=== PATIENT | female | born 1960 | race Caucasian/White ===

== ENCOUNTER 2016-07-03 10:05 | Outpatient (CLI) | payer MEDICARE ==
[2016-07-03 10:27] LABS: #Basophils 0.1 thou/uL (0.0-0.2); #Lymphocytes 2.1 thou/uL (1.20-3.40); #Monocytes 0.3 thou/uL (0.11-0.59); #Neutrophils 2.9 thou/uL (1.40-6.50); %Eosinophils 0.8 % (0.0-10.0); %Lymphocytes 38.7 % (21.0-51.0); %Monocytes 6.1 % (0.0-10.0); %Neutrophils 53.3 % (42.0-75.0); Hemoglobin 14.7 g/dL (12.0-16.0); Mean Corpuscular HGB CONC 34.1 g/dL (32.0-36.0); Mean Corpuscular Hemoglobin 33.3 pg (27.0-31.0); Mean Corpuscular Volume 97.5 fl (81.0-99.0); Platelet Count 261 thou/uL (130-400); RBC Distribution Width 13.1 % (11.5-14.5); Red Blood Cell (RBC) Count 4.43 mill/uL (4.20-5.40); White Blood Cell (WBC) Count 5.3 thou/uL (4.8-10.8)
[2016-07-03 11:22] LABS: ALT (SGPT) 24 U/L (8-55); AST (SGOT) 21 U/L (5-34); Albumin 4.3 g/dL (3.5-5.0); Alkaline Phosphatase 81 U/L (40-150); Anion Gap 14 mmol/L (10-20); BUN (Urea Nitrogen) 17 mg/dL (9.8-20.1); Bilirubin, Total 0.4 mg/dL (0.2-1.2); Calc. Creatinine Clearance 0 mL/min (70-130); Calcium 9.7 mg/dL (7.8-10.44); Carbon Dioxide 27 mmol/L (22-29); Cardiac Risk 6.2 (Less than 4.5); Chloride 105 mmol/L (98-107); Cholesterol 303 mg/dl (< 200 Desired); Estimated GFR-MDRD 72; Glucose 115 mg/dL (70-105); HDL Cholesterol 49 mg/dL (>60 Neg Risk); LDL Cholesterol, Calculated 208 mg/dL; Magnesium 2.3 mg/dL (1.6-2.6); Potassium 4.4 mmol/L (3.5-5.1); Protein, Total 7.3 g/dL (6.0-8.3); Sodium 142 mmol/L (136-145); Triglycerides 228 mg/dL (Less than 150)
[2016-07-04 17:01] LABS: Creatinine, Urine 31.92 mg/dL (47-110); Microalbumin Urine Less than 1.0 mg/dL (0.5-50.0); Microalbumin/Creat Ratio 31.3 mg/g (Less than 30)
== END 2016-07-03 10:06 | disposition home or self-care (01) ==
LOC: BURLAB 10:05
PROVIDERS: ATTEND Physician Assistant Medical
DX: E11.9 Type 2 diabetes mellitus without complications (principal); E78.2 Mixed hyperlipidemia; I10 Essential (primary) hypertension; I48.92 Unspecified atrial flutter
CPT/HCPCS: 36415; 80053; 80061; 82043; 83036; 83735; 84443; 85025

== ENCOUNTER 2018-10-11 09:54 | Outpatient (CLI) | payer MEDICARE ==
--- NOTE | 2018-10-17 13:22 | ULT ---
THYROID ULTRASOUND: DATE: 10/11/2018. FINDINGS: Note: This exam was not presented to me for reading until 10/17 due to technical factors. Ultrasonography of the thyroid gland was performed for evaluation of a nodule seen in the left lobe o n the recent CT of the cervical spine. The right lobe is slightly enlarged measuring 4.4 x 1.6 x 1.1 cm. There are at least 3 solid nodules in this lobe. One is in the superior to mid portion of the lobe measuring 9 x 6 x 9 mm. One in the middle 1/3 of the lobe measures about 10 x 9 mm. A more complex nodule in the mid portion measures 9 x 6 x 5 mm. The left lobe is slightly larger measuring 5.1 x 1.7 x 1.5 cm. There is a larger solid nodule with b lood flow in the mid to lower portion of the lobe that measures 2.3 x 1.5 x 2.0 cm. No surrounding a denopathy was seen. IMPRESSION: Mild thyroid enlargement with bilateral solid nodules. The nodules are reasonably well circumscribed and tend to be isoechoic or slightly hypoechoic relative to the surrounding tissue. The findings mo st likely represent a multinodular goiter; however, since 1 nodule is so much bigger than the others (2.3 cm left lower lobe), one might want to consider a biopsy of at least this nodule. CODE T POS: HOME
== END 2018-10-11 09:55 | disposition home or self-care (01) ==
LOC: BURULT 09:54
PROVIDERS: ATTEND Family Medicine
DX: E04.2 Nontoxic multinodular goiter (principal)
CPT/HCPCS: 76536

== ENCOUNTER 2019-05-02 09:53 | Outpatient (CLI) | payer MEDICARE ==
--- NOTE | 2019-05-02 10:10 | RAD ---
XR Chest Pa Lat STANDARD History: R09.89. Decreased breath sounds at left lung base Comparison: Radiograph May 27, 2018 Findings: Pulmonary arteries are mildly enlarged, chronic. No confluent airspace consolidation, pneum othorax, or effusion. Volume loss right hemithorax, chronic. No acute osseous abnormality. Impression: No acute intrathoracic abnormality.
== END 2019-05-02 09:54 | disposition home or self-care (01) ==
LOC: BURRAD 09:53
PROVIDERS: ATTEND Registered Nurse Community Health
DX: R09.89 Other specified symptoms and signs involving the circulatory and respiratory systems (principal)
CPT/HCPCS: 71046

== ENCOUNTER 2019-06-29 14:30 | Emergency (ER) | payer MEDICARE ==
[2019-06-29 15:02] LABS: #Basophils 0.1 thou/uL (0.0-0.2); #Eosinphils 0.1 thou/uL (0.0-0.7); #Lymphocytes 2.4 thou/uL (1.20-3.40); #Monocytes 0.6 thou/uL (0.11-0.59); #Neutrophils 4.6 thou/uL (1.40-6.50); %Basophils 1.1 % (0.0-1.0); %Eosinophils 0.7 % (0.0-10.0); %Lymphocytes 30.9 % (21.0-51.0); %Monocytes 7.8 % (0.0-10.0); %Neutrophils 59.5 % (42.0-75.0); Hemoglobin 13.4 g/dL (12.0-16.0); Mean Corpuscular HGB CONC 33.7 g/dL (32.0-36.0); Mean Corpuscular Hemoglobin 33.6 pg (27.0-31.0); Mean Corpuscular Volume 99.7 fL (78.0-98.0); Mean Platelet Volume 10.3 fL (7.4-10.4); Platelet Count 266 thou/uL (130-400); RBC Distribution Width 12.4 % (11.5-14.5); Red Blood Cell (RBC) Count 3.99 mill/uL (4.20-5.40); White Blood Cell (WBC) Count 7.8 thou/uL (4.8-10.8)
[2019-06-29 15:18] LABS: ALT (SGPT) 29 U/L (8-55); AST (SGOT) 27 U/L (5-34); Albumin 4.3 g/dL (3.5-5.0); Alkaline Phosphatase 104 U/L (40-110); Anion Gap 15 mmol/L (10-20); BUN (Urea Nitrogen) 15 mg/dL (9.8-20.1); Bilirubin, Total 0.3 mg/dL (0.2-1.2); Calc. Creatinine Clearance 0 mL/min (70-130); Calcium 10.5 mg/dL (7.8-10.44); Carbon Dioxide 27 mmol/L (22-29); Chloride 100 mmol/L (98-107); Estimated GFR-MDRD 76; Globulin 3.4 g/dL (2.4-3.5); Glucose 102 mg/dL (70-105); Potassium 3.9 mmol/L (3.5-5.1); Protein, Total 7.7 g/dL (6.0-8.3); Sodium 138 mmol/L (136-145)
--- NOTE | 2019-06-29 19:58 | RAD ---
PORTABLE CHEST: 06/29/19 An AP portable film at 1519 is compared with 05/02/2019 study. The heart remains normal in size and the lungs are clear. No acute infiltrate or effusion was seen. A fat pad is noted in the right cardiophrenic angle as usual. The mediastinum was unremarkable. IMPRESSION: No acute thoracic finding. POS: HOME
== END 2019-06-29 19:53 | disposition home or self-care (01) ==
LOC: BURERS 14:30
DX: R07.9 Chest pain, unspecified (principal); E11.9 Type 2 diabetes mellitus without complications; E05.90 Thyrotoxicosis, unspecified without thyrotoxic crisis or storm; E78.2 Mixed hyperlipidemia; I10 Essential (primary) hypertension; F41.9 Anxiety disorder, unspecified; F32.9 Major depressive disorder, single episode, unspecified; Z79.899 Other long term (current) drug therapy; Z79.82 Long term (current) use of aspirin
CPT/HCPCS: 36415; 71045; 80053; 83880; 84484; 85025; 93005

== ENCOUNTER 2022-04-27 10:55 | Emergency (ER) | payer MEDICARE ==
[2022-04-27] MEDS ORDERED: Ipratropium/Albuterol 3 ML NEB ONE (11:36)
[2022-04-27] MEDS ORDERED: predniSONE 20 MG TAB ONE (12:47)
[2022-04-27] MEDS ORDERED: Benzonatate 100 MG CAP ONE (12:47)
== END 2022-04-27 12:53 | disposition home or self-care (01) ==
LOC: BURERS 10:55
DX: J20.9 Acute bronchitis, unspecified (principal); I10 Essential (primary) hypertension; E03.9 Hypothyroidism, unspecified; F17.210 Nicotine dependence, cigarettes, uncomplicated
CPT/HCPCS: 71046; 87081; 87430; 87804; J7512; J7620

== ENCOUNTER 2024-04-28 14:26 | Emergency (ER) | payer MEDICARE ==
[2024-04-28] MEDS ORDERED: Ondansetron PF 4 MG/2 ML Vial ONE (14:51)
[2024-04-28] MEDS ORDERED: Ketorolac Tromethamine 30 MG (1 mL) VIAL ONE (14:51)
[2024-04-28] MEDS ORDERED: Morphine 4 MG/ML VIAL ONE (14:51)
[2024-04-28 14:57] LABS: #Basophils 0.1 thou/uL (0.0-0.2); #Lymphocytes 1.3 thou/uL (1.20-3.40); #Monocytes 0.5 thou/uL (0.11-0.59); #Neutrophils 8.7 thou/uL (1.40-6.50); %Basophils 1.1 % (0.0-1.0); %Eosinophils 0.3 % (0.0-10.0); %Lymphocytes 12.3 % (21.0-51.0); %Monocytes 4.3 % (0.0-10.0); %Neutrophils 82.1 % (42.0-75.0); Hematocrit 43.3 % (36.0-47.0); Hemoglobin 15.2 g/dL (12.0-16.0); Mean Corpuscular HGB CONC 35.1 g/dL (32.0-36.0); Mean Corpuscular Volume 88.3 fl (78.0-98.0); Mean Platelet Volume 8.4 fL (7.4-10.4); Platelet Count 287 10x3/uL (130-400); RBC Distribution Width 12.2 % (11.5-14.5); White Blood Cell (WBC) Count 10.6 10x3/uL (4.8-10.8)
[2024-04-28 15:16] LABS: ALT (SGPT) 21 U/L (Less than 34); AST (SGOT) 20 U/L (11-34); Albumin 3.9 g/dL (3.1-4.5); Alkaline Phosphatase 103 U/L (40-110); Anion Gap 17 mmol/L (10-20); BUN (Urea Nitrogen) 20 mg/dL (9.8-20.1); Bilirubin, Total 0.5 mg/dL (0.3-1.2); Calc. Creatinine Clearance 0 mL/min (70-130); Calcium 10.5 mg/dL (7.8-10.44); Carbon Dioxide 22 mmol/L (23-31); Chloride 103 mmol/L (98-107); Estimated GFR 66; Globulin 3.5 g/dL (2.4-3.5); Glucose 221 mg/dL (80-115); Lipase 76 U/L (8-78); Potassium 3.7 mmol/L (3.5-5.1); Protein, Total 7.4 g/dL (5.8-8.1); Sodium 138 mmol/L (136-145); Troponin I Less than 0.010 ng/mL (< 0.028)
[2024-04-28 15:54] LABS: Bilirubin Negative (Negative); Blood, Urine Moderate (Negative); Clarity Cloudy (Clear); Glucose, Urine (Dipstick) 500 mg/dL (Negative); Ketone, Urine 15 mg/dL (Negative); Leukocyte Negative (Negative); Nitrite Negative (Negative); Protein, Urine (Dipstick) Negative (Neg-Trace); Specific Gravity, Urine 1.015 (1.005-1.030); Urobilinogen 0.2 mg/dL (Less than 2); pH, Urine 6.5 (5.0-9.0)
[2024-04-28 16:13] LABS: Bacteria/HPF 2+ HPF (None Seen); CAUTI Indications for Culture Dysuria,urgency,freq; RBC/HPF Greater than 50 HPF (0-3); Squamous Epithelial 0-3 HPF (0-3); WBC/HPF 0-3 HPF (0-3)
[2024-04-28 16:15] LABS: Urine Culture Reflex No No
[2024-04-28] MEDS ORDERED: LevoFLOXacin 500 MG TAB ONE (16:23)
== END 2024-04-28 18:00 | disposition home or self-care (01) ==
LOC: BURERS 14:26
DX: N23 Unspecified renal colic (principal); I10 Essential (primary) hypertension; E11.9 Type 2 diabetes mellitus without complications; F17.210 Nicotine dependence, cigarettes, uncomplicated
CPT/HCPCS: 74177; 80053; 81001; 83605; 83690; 84484; 85025; 96374; 96375; J1885; J2270; J2405